=== PATIENT | female | born 1985 | race Caucasian/White ===

== ENCOUNTER 2020-04-29 15:46 | Emergency (ER) | payer OTHER, MEDICAID, SELFPAY ==
[2020-04-29 15:50] VITALS: BP 128/82; PULSE 114; RESP 24; O2SAT 95
[2020-04-29] MEDS: LIDO 1%/SOD BICARB 8.4% (10ML) 10 ML SYRINGE INJ (19:03)
[2020-04-29] MEDS: cefTRIAXone 2,000 MG VIAL 1000 MG IM (19:27)
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
[2020-04-29 19:52] VITALS: BP 118/70; PULSE 89; RESP 20; O2SAT 97
--- NOTE | 2020-05-02 16:22 | PC.NURSE ---
Pt called requesting prescriptions be called [facility]. Called in to that pharmacy.
== END 2020-04-29 19:52 | disposition home or self-care (01) ==
PROVIDERS: Emergency Provider Emergency Medicine
DX: L02.413 Cutaneous abscess of right upper limb (principal); F11.99 Opioid use, unspecified with unspecified opioid-induced disorder
CPT/HCPCS: 10060; 96372; 99281; 99283; J0696